=== PATIENT | female | born 2005 ===

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

== ENCOUNTER 2023-02-25 20:56 | Emergency (ER) | payer OTHER ==
[~2023-02-25] VITALS: Ht 165.1 cm; Wt 73.5 kg
[2023-02-25 21:12] VITALS: BP 140/94
[2023-02-25] MEDS ORDERED: Voltaren100 GM TOP (21:50)
== END 2023-02-25 22:24 | disposition home or self-care (01) ==
LOC: ER 20:56
DX: S50.01XA Contusion of right elbow, initial encounter (principal); W19.XXXA Unspecified fall, initial encounter
CPT/HCPCS: 73080